=== PATIENT | female | born 1980 | race Two or more races ===

== ENCOUNTER 2019-04-21 16:40 | Emergency (ER) | payer BC ==
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
[2019-04-21 17:24] LABS: CHLORIDE,CL 103 mEq/L (98-106); SODIUM,NA 140 mEq/L (136-145)
== END 2019-04-21 20:00 ==
LOC: CC.ED 16:40
DX: O20.9 Hemorrhage in early pregnancy, unspecified (principal); O26.891 Other specified pregnancy related conditions, first trimester; R10.2 Pelvic and perineal pain; Z3A.01 Less than 8 weeks gestation of pregnancy
CPT/HCPCS: 36415; 76817; 80053; 81001; 84702; 84703; 85025; 85610; 85730; 87086; 87088; 87186; 99285-25